=== PATIENT | male | born 1995 | race Hispanic/Latino ===

== ENCOUNTER 2021-04-13 18:16 | Emergency (ER) | payer SELFPAY ==
[~2021-04-13] VITALS: Ht 170.2 cm; Wt 85.3 kg
[2021-04-13] MEDS ORDERED: CYCLOBENZAPRINE HCL 10 MG TABLET PO ONE (19:30)
[2021-04-13] MEDS ORDERED: KETOROLAC 60 MG VIAL (30MG/ML) IM ONE (19:30)
[2021-04-13] MEDS ORDERED: CYCL10TA16 PO (21:17)
[2021-04-13] MEDS ORDERED: NAPR-1180 PO (21:17)
[2021-04-13 21:23] VITALS: BP 122/76
== END 2021-04-13 21:32 | disposition home or self-care (01) ==
LOC: EDH 18:16
DX: S16.1XXA Strain of muscle, fascia and tendon at neck level, initial encounter (principal); Z79.1 Long term (current) use of non-steroidal anti-inflammatories (NSAID); V49.49XA Driver injured in collision with other motor vehicles in traffic accident, initial encounter; Y93.89 Activity, other specified; Y92.89 Other specified places as the place of occurrence of the external cause; Y99.8 Other external cause status
CPT/HCPCS: 72040; 96372; 99283; J1885